=== PATIENT | male | born 1955 | race Caucasian/White ===

== ENCOUNTER 2017-06-28 11:41 | Day surgery (SDC) | payer OTHER ==
[~2017-06-28] VITALS: Ht 180.3 cm; Wt 83.9 kg
[2017-06-28 12:38] VITALS: Ht 180.3 cm; Wt 83.9 kg
[2017-06-28 13:15] VITALS: BP 164/94; PULSE 75; RESP 14
[2017-06-28] MEDS ORDERED: PROPOFOL 60 ML ONE (13:42)
[2017-06-28] MEDS ORDERED: PROPOFOL 20 ML ONE (14:20)
--- NOTE | 2017-06-28 15:24 | OPPN ---
Date/Time of Note Date/Time of Note DATE: 06/28/17 TIME: 15:20 Operative Report Preoperative Diagnosis Abdominal pain Screening Postoperative Diagnosis Gastritis with erosions Multiple superficial duodenal ulcers Small sigmoid colon polyp was removed with biopsy forceps Internal hemorrhoids Operation/Procedure Performed Esophagogastroduodenoscopy and biopsy Colonoscopy and biopsy Surgeon see signature line public relations assistant None Anesthesia: MAC Estimated blood loss: none Transfusion Required none Specimen Gastric mucosal biopsy Sigmoid colon polyp biopsy Grafts/Implants none Complications none ARJUN CEDILLO MD Jun 28, 2017 15:24
--- NOTE | 2017-06-28 15:33 | GILP ---
DATE OF PROCEDURE: 06/28/2017 PROCEDURE PERFORMED: 1. Esophagogastroduodenoscopy and biopsy. 2. Colonoscopy and biopsy. SURGEON: Dann Fitch MD. PREOPERATIVE DIAGNOSIS: 1. Abdominal pain. 2. Screening. Postop diagnosis. 3. Gastritis with erosions. 4. Gastric mucosal biopsies were taken for Helicobacter pylori test. 5. Multiple superficial duodenal bulb ulcers. POSTOPERATIVE DIAGNOSIS: 1. Colonoscopy all the way to the cecum. 2. Small sigmoid colon polyp was removed using biopsy forceps. 3. Internal hemorrhoids. INDICATION: Mr. Gely Frazier is a 61-year-old male patient who had upper abdominal pain, not responding to therapy. Patient also needed a screening colonoscopy. The procedures and possible complications were well explained to the patient. He understood and consented to the procedures. DESCRIPTION OF PROCEDURE: Under the influence of anesthesia, the gastroscope was carefully introduced into the esophagus. Under direct vision, it was advanced to the stomach, into the pylorus, into the duodenal bulb, and descending duodenum. FINDINGS: Esophagus, mucosa was normal. Stomach, the patient had gastritis with erosions. Gastric mucosal biopsies were taken for Helicobacter pylori test. The duodenum. Patient was noted to have multiple superficial duodenal bulb ulcers. DESCRIPTION OF PROCEDURE: The colonoscope was carefully introduced in the rectum. Under direct vision, it was advanced all the way to the cecum. FINDINGS: The patient had a small sigmoid colon polyp and it was removed using biopsy forceps. He had internal hemorrhoids. He tolerated the procedures very well. There were no complication from the procedures. At the end of procedures he was awake with stable vital signs and he was discharged home in care of his family. IMPRESSION: Please see postoperative diagnoses. PLAN: 1. Omeprazole 40 mg p.o. q.a.m. 2. Await histopathology reports. 3. Next screening colonoscopy in 10 years. Dictated By: MD EDMUND Hanks/nancy/belle /Document#: [id number]
== END 2017-06-28 15:33 | disposition home or self-care (01) ==
LOC: GIL 11:41
PROVIDERS: ATTEND Internal Medicine Gastroenterology
DX: Z12.11 Encounter for screening for malignant neoplasm of colon (principal); K63.5 Polyp of colon; K64.8 Other hemorrhoids; K29.50 Unspecified chronic gastritis without bleeding; K26.9 Duodenal ulcer, unspecified as acute or chronic, without hemorrhage or perforation; B96.89 Other specified bacterial agents as the cause of diseases classified elsewhere; F17.200 Nicotine dependence, unspecified, uncomplicated
CPT/HCPCS: 43239; 45380; 88305; 88312; Z7610